=== PATIENT | female | born 1935 | race Caucasian/White ===

== ENCOUNTER 2016-07-31 21:16 | Emergency (ER) | payer MEDICARE ==
[2016-08-01 00:16] LABS: HEMOGLOBIN 17.1 gm/dl (12.3-15.3); RED BLOOD COUNT 5.52 M/UL (4.00-5.10); WHITE BLOOD COUNT 9.1 K/UL (4.5-11.0)
[2016-08-01 00:35] LABS: BUN/CREATININE RATIO 15 (0-10)
== END 2016-08-01 05:15 | disposition home or self-care (01) ==
LOC: ER1 21:16
PROVIDERS: Physician Assistant
DX: N39.0 Urinary tract infection, site not specified (principal); R41.0 Disorientation, unspecified; I10 Essential (primary) hypertension; Z79.899 Other long term (current) drug therapy
CPT/HCPCS: 36415; 70450; 71010; 80053; 81001; 82272; 82550; 82553; 83690; 83874; 84484; 85025; 87040; 87077; 87086; 87186; 96365; 96366; 96376; 99284; C9113

== ENCOUNTER 2021-11-09 18:36 | Emergency (ER) | payer MEDICARE ==
[2021-11-09 20:25] LABS: HEMOGLOBIN 14.8 gm/dl (12.3-15.3); RED BLOOD COUNT 4.76 M/UL (4.00-5.10); WHITE BLOOD COUNT 7.2 K/UL (4.5-11.0)
[2021-11-09 20:44] LABS: BUN/CREATININE RATIO 14 (0-10)
[2021-11-10] MEDS ORDERED: KEFLEX CAP 250250 MG PO (04:14)
== END 2021-11-10 04:25 | disposition home or self-care (01) ==
LOC: ER1 18:36
PROVIDERS: Physician Assistant
DX: N39.0 Urinary tract infection, site not specified (principal); I10 Essential (primary) hypertension
CPT/HCPCS: 70450; 80053; 81001; 85025; 87077; 87086; 87186; 99284